=== PATIENT | male | born 1950 | race African-American/Black ===

== ENCOUNTER 2016-12-23 08:49 | Inpatient (IN) | payer MEDICARE, OTHER ==
[2016-12-17 14:22] LABS: EOSINOPHILS % (AUTO) 0.9 % (0.0-3.0); LYMPHOCYTES % (AUTO) 26.1 % (20.0-45.0); MEAN CORPUSCULAR HEMOGLOBIN 29.1 PG (27.0-31.0); MEAN CORPUSCULAR HGB CONC 32.6 G/DL (32.0-36.0); MEAN CORPUSCULAR VOLUME 89 FL (80-99); MEAN PLATELET VOLUME 5.8 FL (6.5-10.1); MONOCYTES % (AUTO) 6.3 % (1.0-10.0); NEUTROPHILS % (AUTO) 65.7 % (45.0-75.0); PLATELET COUNT 212 K/UL (150-450); RED CELL DISTRIBUTION WIDTH 12.3 % (11.6-14.8); WHITE BLOOD COUNT 6.6 K/UL (4.8-10.8)
[2016-12-17 14:38] LABS: PROTHROMBIN TIME 10.5 SEC (9.30-11.50)
[2016-12-17 14:40] LABS: APPEARANCE,URINE CLEAR; KETONES,URINE NEGATIVE (NEGATIVE); LEUKOCYTE ESTERASE ,URINE NEGATIVE (NEGATIVE); NITRITE,URINE NEGATIVE (NEGATIVE); PH,URINE 6 (4.5-8.0); PROTEIN,URINE NEGATIVE (NEGATIVE); UROBILINOGEN,URINE NORMAL MG/DL (0.0-1.0)
[2016-12-17 14:48] LABS: ALANINE AMINOTRANSFERASE 17 U/L (3-41); ALBUMIN/GLOBULIN RATIO 1.7 (1.0-2.7); ANION GAP 12 (5-15); ASPARTATE AMINO TRANSFERASE 19 U/L (5-40); CALCIUM 9.4 mg/dL (8.6-10.2); CARBON DIOXIDE 26 mEQ/L (20-30); CHLORIDE 104 mEQ/L (98-107); GLOMERULAR FILTRATION RATE > 60 mL/min (>60); HEMOLYSIS 5; POTASSIUM 3.7 mEQ/L (3.4-4.9); SODIUM 142 mEQ/L (135-145); TOTAL PROTEIN 7.5 g/dL (6.6-8.7)
[2016-12-17 15:20] LABS: BACTERIA,URINE OCCASIONAL /HPF; RBC,URINE 0-2 /HPF (0 - 0); SQUAMOUS EPITHELIAL CELL,UR OCCASIONAL /LPF (NONE/OCC); WBC,URINE 0-2 /HPF (0 - 0)
--- NOTE | 2016-12-17 15:21 | Diagnostic Imaging Report ---
Indication: COUGH Technique: Two views of the chest Comparison: none Findings: There is atelectasis at the left lung base. Lungs and pleural spaces otherwise clear. The heart size is normal. Aorta is tortuous. Bones are unremarkable Impression: Left basilar atelectasis. No acute process otherwise
[~2016-12-23] VITALS: Ht 170.2 cm; Wt 90.7 kg
[2016-12-23] VITALS (14 sets, daily range): BP systolic 97–152; BP diastolic 52–92
[~2016-12-23 08:49] MED LIST: ceFAZolin 2gm/50ml Premix 50 ML IVPB ONE
[2016-12-23] MEDS ORDERED: Vancomycin 1gm inj IVPB ONE (09:03)
[2016-12-23] MEDS ORDERED: Thrombin 5000 units TOPIC ONE (09:03)
[2016-12-23] MEDS ORDERED: Bacitracin 50000 Units Vial ONE (09:04)
[2016-12-23] MEDS ORDERED: Bupivacaine w/Epi 0.5% 30ml Vial INJ ONE (09:04)
[2016-12-23] MEDS ORDERED: Thrombin 5000 units spray kit TOPIC ONE (09:04)
[2016-12-23] MEDS ORDERED: Gelfoam Absorbable 1gm powder pkt TOPIC ONE (09:04)
[2016-12-23] MEDS ORDERED: TAMSULOSIN HCL0.4 MG ORAL (09:18)
[2016-12-23] MEDS ORDERED: AMLODIPINE BESYL5 MG ORAL (09:19)
[2016-12-23] MEDS ORDERED: PROSCAR5 MG ORAL (09:19)
[2016-12-23] MEDS ORDERED: NORCO 10-325 T1 EACH ORAL (09:20)
[2016-12-23] MEDS ORDERED: TIZANIDINE HCL4 MG ORAL (09:20)
[2016-12-23] MEDS ORDERED: LR 1000ml ONE (10:00)
[2016-12-23] MEDS ORDERED: Zemuron 50mg/5ml Inj IV ONE (10:00)
[2016-12-23] MEDS ORDERED: NS Irrig 1000ml ONE (10:00)
[2016-12-23] MEDS ORDERED: Sterile Water Irrig 1000ml IRRIG ONE (10:00)
[2016-12-23] MEDS ORDERED: Propofol 200mg/20ml IV ONE (10:00)
[2016-12-23] MEDS ORDERED: fentaNYL 100 mcg/2 mL IV ONE (10:00)
[2016-12-23] MEDS ORDERED: Propofol 1,000mg/ 100ml btl IV ONE (10:00)
[2016-12-23] MEDS ORDERED: Midazolam 2mg/2ml Inj ONE (10:00)
[2016-12-23] MEDS ORDERED: ePHEDrine 50mg/ml Inj ONE (10:00)
[2016-12-23] MEDS ORDERED: LR 1000ml 1,000 ML IVLG SCH (11:04)
[2016-12-23] MEDS ORDERED: Hydromorphone 0.5mg/0.5ml inj IVP PRN (11:15)
[2016-12-23] MEDS ORDERED: LORazepam Inj 2mg/ml 1ml IV PRN (11:15)
[2016-12-23] MEDS ORDERED: DiphenhydrAMINE 50mg/ml Inj IVP PRN (11:15)
[2016-12-23] MEDS ORDERED: Meperidine 25mg/0.5ml Inj (FOR RIGORS ONLY) IV PRN (11:15)
--- NOTE | 2016-12-23 11:16 | Anethesia Preoperative Eval ---
Anesthesia Pre-op PMH/ROS General Date of Evaluation: Dec 23, 2016 Time of Evaluation: 09:45 Anesthesiologist: Nikhil ASA Score: ASA 3 Mallampati Score Class I : Soft palate, uvula, fauces, pillars visible Class II: Soft palate, uvula, fauces visible Class III: Soft palate, base of uvula visible Class IV: Only hard plate visible Mallampati Classification: Class II Surgeon: Taylor Diagnosis: Lumbar stenosis Surgical Procedure: Lumbar decompression L4-5, L5-S1 Family History: no anesthesia problems Allergies: Coded Allergies: No Known Allergies (Unverified , 04/17/14) Medications: see eMAR Past Medical History Cardiovascular: Reports: HTN, Denies: CAD, OK, valve dz, arrhythmia, other Pulmonary: Denies: asthma, COPD, HANG, other Gastrointestinal/Genitourinary: Reports: other - Hepatitis C, BPH, Denies: GERD, CRI, ESRD Neurologic/Psychiatric: Denies: dementia, CVA, depression/anxiety, TIA, other Endocrine: Denies: DM, hypothyroidism, steroids, other Hematology/Immune: Denies: anemia, DVT, bleeding disorder, other Musculoskeletal/Integumentary: Reports: RA, Denies: OA, DJD, DDD, edema, other PMH Narrative: HTN, Hep C, BPH PSxH Narrative: Cervical surgery, Umbilical herniorrhaphy Anesthesia Pre-op Phys. Exam Physician Exam Last Vital Signs Date Time Temp Pulse Resp B/P (MAP) Pulse Ox O2 Delivery O2 Flow Rate FiO2 12/23/16 09:32 97.5 68 18 152/91 95 Room Air Constitutional: NAD Neurologic: CN 2-12 intact Cardiovascular: RRR, no M/R/G Respiratory: CTA Gastrointestinal: S/NT/ND Airway Exam Mallampati Score: Class II MO: full ROM: full Teeth: missing Anesthesia Pre-op A/P Labs WNL: Studies Pre-op Studies: EKG - SR, questionable lateral ischemia Risk Assessment & Plan Assessment: ASA class 3 patient for lumbar decompression Plan: GETA, [place] scope, SedLine monitor Status Change Before Surgery: No Pre-Antibiotics Drug: Ancef Given Within 1 Hr of Incision: Yes Time Given: 10:15 YAAKOV LLANES M.D. Dec 23, 2016 11:16
--- NOTE | 2016-12-23 11:17 | Immediate Post-Op Evaluation ---
Immediate Post-Op Evalulation Immediate Post-Op Evalulation Procedure: Lumbar decompression L4-4, L5-S1 Date of Evaluation: Dec 23, 2016 Time of Evaluation: 13:20 IV Fluids: 2000 Estimated Blood Loss: 200 Urinary Output: 100 Blood Pressure Systolic: 118 Blood Pressure Diastolic: 75 Pulse Rate: 99 Respiratory Rate: 20 O2 Sat by Pulse Oximetry: 96 Temperature (Fahrenheit): 97.7 Pain Score (1-10): 0 Nausea: No Vomiting: No Complications No complication Patient Status: reacts, patent, extubated, none Hydration Status: adequate Drug: Ancef Given Within 1 Hr of Incision: Yes Time Given: 10:15 YAAKOV LLANES M.D. Dec 23, 2016 11:17
--- NOTE | 2016-12-23 12:54 | Pre-Procedure Note/Attestation ---
Pre-Procedure Note/Attestation Complete Prior to Procedure Procedure Narrative: [id number] laminoforaminotomy Indications for Procedure Pre-Operative Diagnosis: l4-s1 stenosis with LLE radiculopathy Attestation I attest that I discussed the nature of the procedure; its benefits; risks and complications; and alternatives (and the risks and benefits of such alternatives ), prior to the procedure, with the patient (or the patient's legal business process representative). I attest that, if there was a reasonable possibility of needing a blood transfusion, the patient (or the patient's legal business process representative) was given the [facility] standardized written summary, pursuant to the [place] Blood Safety Act ([place] Health and Safety Code # 1645, as amended). I attest that I re-evaluated the patient just prior to the surgery and that there has been no change in the patient's H&P, except as documented below: ADRIAN MULTANI Dec 23, 2016 12:54
--- NOTE | 2016-12-23 12:56 | Brief Operative Note ---
Immediate Post Operative Note Operative Note Pre-op Diagnosis: l4-s1 stenosis with LLE radiculopathy Procedure: L4, L5, S1 L laminectomy, foraminotomy, lysis of adhesions Post-op Diagnosis: same as pre-op Findings: consistent w/pre-op dx studies Surgeon: teddy Anesthesiologist: sukumar Anesthesia: general Specimen: none Complications: none Condition: stable Fluids: 1900 Estimated Blood Loss: volume - 200 Drains: hemovac Implant(s) used?: No ADRIAN MULTANI Dec 23, 2016 12:56
[2016-12-23] MEDS ORDERED: Metoclopramide 10mg/2ml Inj IVP PRN (13:00)
[2016-12-23] MEDS ORDERED: HYDROmorphone 1mg/ml Carpuject SUBQ PRN (13:00)
[2016-12-23] MEDS ORDERED: Naloxone 0.4mg/ml Inj IVP PRN (13:00)
[2016-12-23] MEDS ORDERED: Milk of Magnesia 30ml Ud ORAL PRN (13:00)
[2016-12-23] MEDS ORDERED: Norco 7.5mg/325mg tab ORAL PRN (13:00)
[2016-12-23] MEDS ORDERED: Norco 5mg/325mg tab ORAL PRN (13:00)
--- NOTE | 2016-12-23 13:32 | Diagnostic Imaging Report ---
Indication: Back pain Comparison: None Findings: Fluoroscopic views of the lumbar spine were obtained. 2 localization imaging obtained intraoperatively. Initial images show needles posterior to L4 and L5. Second image states instrument at the level of L4-5 disc. Impression: Intraoperative imaging
[2016-12-23] MEDS: D5 1/2NS 1,000 ML IV SCH (16:59)
[2016-12-23] MEDS: Pericolace tab ORAL SCH (17:05)
[2016-12-23] MEDS: Norco 7.5mg/325mg tab ORAL PRN ×2 (17:07→22:09)
[2016-12-23] MEDS: ceFAZolin sod 1 GM in D5W 55 ML IV SCH (17:09)
--- NOTE | 2016-12-23 17:48 | History & Physical ---
History and Physical History & Physicial Dictated for Int Med Dr Manzano no. [id number]. MAX GERMAN Dec 23, 2016 17:48
--- NOTE | 2016-12-23 19:16 | Operative Note - Dictated ---
DATE OF OPERATION: 12/23/2016 SURGEON: Ugo Vazquez M.D. MACHINE ENGINEER: None. ANESTHESIA: General endotracheal anesthesia. ANESTHESIOLOGIST: Wilfred Ngo M.D. Preoperative Diagnosis: Spinal stenosis, L4-L5 and L5-S1 with left lower extremity radiculopathy. POSTOPERATIVE DIAGNOSES: 1. Spinal stenosis, L4-L5 and L5-S1 with left lower extremity radiculopathy. 2. Extensive adhesion surrounding the L5 nerve root. PROCEDURE: 1. Hemilaminectomy, left side L4, L5, superior one-half S1. 2. Foraminotomy, left side L4-L5 and L5-S1. 3. Neurolysis L5. 4. Use of operating microscope. 5. Use of fluoroscopy for localization purposes with interpretation. 6. Neurodiagnostic monitoring. ESTIMATED BLOOD LOSS: 200 mL. FLUIDS GIVEN: 1900 mL. CONDITION: Patient's condition is stable. COMPLICATIONS: None. Indications: The patient is a 66-year-old with fairly significant spinal stenosis at L4-L5 and L5-S1 with left lower extremity radiculopathy. He also has mechanical back pain. I did discuss with him the option of decompression fusion versus decompression alone. This was determined that the patient had failed conservative care. The patient elected not to have fusion and desired for decompression along with the risks and benefits of surgery were discussed, included, but not be limited to those of bleeding, infection, damage to nerves, vessels, tendons, anesthetic risk, allergic reaction, aspiration, and possibly . The patient understood and wished to proceed. Possible risk for additional need for surgery and instability and increased mechanical back pain was discussed. The patient understood and wished to proceed. Operative PROCEDURE in detail: The patient was taken to the operative suite. After general endotracheal anesthesia was obtained, the Zuniga catheter was placed. He was turned prone on the radiolucent table. The back was prepped and draped in the usual sterile fashion. A midline skin incision was made after fluoroscopic markings confirmed the appropriate levels. Subperiosteal dissection was carried out from L4 through S1. This was performed on the left side. Self-retaining retractor was put in place. The L4-L5 level was identified and a curved curette was placed at that site and the L4-L5 was properly confirmed. Under microscopic visualization, hemilaminectomy was performed on the inferior portion of L4 and superior portion of L5. Extensive scarring was encountered and thickening and calcification of the ligamentum flavum, which was removed in a piecemeal fashion. Medial facetectomy was performed. The neural foraminotomy was achieved. It was noted that the inferior portion of the nerve sac was quite compressed and it was decided to perform a complete laminectomy on the left side at L5. This was performed by using high-speed drill and thinning up lamina and removing the lamina off of the ligamentum flavum with a Kerrison punch. Extensive scarring was encountered. Marked adhesions of the L5 nerve root was also encountered. Scarring of the ligamentum flavum down to S1 was encountered. Therefore it was decided to perform a laminectomy of the superior half of the S1 lamina, which allowed for removal of the calcified ligamentum flavum. At this point, under microscopic visualization, the L5 nerve root was identified to have extensive scarring due to chronic inflammatory changes. A marker set curette as well as rotund micro instruments were used to meticulously tease the scar tissue off of the dural sac. Once full decompression of the left side of the canal at L4, L5, and S1 was achieved, neural foraminotomies were achieved by performing medial facetectomies. Copious irrigation was performed. Once the area was fully decompressed, decision was made to close. The patient did have a steady oozing throughout the procedure and therefore it was felt that a medium-sized Hemovac drain should be placed, which was placed subfascially. The fascia was repaired using #1 Vicryl. Copious irrigation was performed both deep to the fascia and above the fascia. At this juncture, once copious irrigation was achieved, meticulous hemostasis superficially was achieved, decision was made to close. Skin was repaired using 2-0 subcutaneous. The drain was attached with Steri-Strips. Sterile dressing was applied. The patient at time of this dictation was awaiting extubation. Sponge and needle counts were correct. Neurodiagnostic monitoring remained stable throughout. Ugo Vazquez M.D. DR: Tracie JOB#: [id number] CC:
[2016-12-23] MEDS: Tamsulosin 0.4mg cap ORAL SCH (20:57)
[2016-12-24] VITALS: BP 140/90
--- NOTE | 2016-12-24 00:32 | History and Physical Report ---
DATE OF ADMISSION: 12/23/2016 Chief Complaint: The patient is a 66-year-old male, who presents with a chief complaint of preoperative lumbar surgery. History Of Present Illness: The patient has a history of lumbar stenosis at L4-L5 and L5-S1. The patient is scheduled for laminoforaminotomy today, 12/23/[address] Vazquez. The patient presents today for surgery. PAST MEDICAL HISTORY: Significant for: 1. Hypertension. 2. Benign prostatic hypertrophy. 3. Lumbar stenosis as above. PAST SURGICAL HISTORY: The patient denies. CURRENT MEDICATIONS: 1. Norvasc 5 mg 1 tablet p.o. daily. 2. Finasteride 5 mg 1 tablet p.o. daily. 3. [place] 10/325 mg 1 tablet p.o. q.4 h. p.r.n. 4. Flomax 0.4 mg 1 tablet p.o. at bedtime. 5. Zanaflex 4 mg 1 tablet p.o. twice daily. ALLERGIES: No known drug allergies. Social History: The patient is single and is retired. The patient admits to tobacco use of one-half pack per day. The patient admits to occasional alcohol use. The patient denies drugs abuse. Review Of Systems: Constitutional: The patient denies weight loss or weight gain. The patient denies fevers or chills. HEENT: The patient denies ear or throat pain. The patient denies headache. Cardiovascular: The patient denies palpitations or chest pain. Chest: The patient denies wheeze or shortness of breath. Abdomen: The patient denies nausea, vomiting, diarrhea, or constipation. Genitourinary: The patient denies dysuria or increased frequency of urination. Neuromuscular: The patient has chronic low back pain. The patient denies seizures or generalized weakness. PHYSICAL EXAMINATION: Vital Signs: Temperature 97.4 degrees, respirations 16, pulse 81, and blood pressure 102/64. General: The patient is a well-developed, well-nourished, male, in no apparent distress. HEENT: Eyes, pupils equal and responsive to light and accommodation. Extraocular movements are intact. NECK: Supple without lymphadenopathy. Chest: Lungs are clear to auscultation bilaterally without wheezes or rales. Cardiovascular: Regular rhythm and rate. S1 and S2 are normal without murmurs, rubs, or gallops. Abdomen: Soft, nontender, and nondistended. Positive bowel sounds. No evidence of hepatosplenomegaly. Currently, no rebound or guarding noted. EXTREMITIES: Negative for clubbing, cyanosis, or edema. RECTAL/GENITAL: Refused. Neurologic: Cranial nerves II through XII are grossly intact without focal deficits. Laboratory Studies: WBC 6.6, hemoglobin 14.8, hematocrit 45.4, and platelets 212,000. Sodium 142, potassium 3.7, chloride 104, CO2 26, BUN 8, creatinine 1.0, and glucose 111. Protime 10.5, INR 1.0, PTT 28. Urinalysis was within normal limits. ASSESSMENT: This is a 66-year-old, male. 1. Lumbar stenosis. 2. Preoperative history and physical. 3. Hypertension. 4. Benign prostatic hypertrophy. TREATMENT: 1. Lumbar stenosis. The patient is scheduled for L4-L5 and L5-S1 laminoforaminotomy by Dr. Vazquez today, 12/23/2016. 2. Hypertension. Continue Norvasc as above. 3. Benign prostatic hypertrophy. Continue finasteride as above. Korey Thompson M.D. DR: MAXIM JOB#: [id number] CC:
[2016-12-24] MEDS: D5 1/2NS 1,000 ML IV SCH ×2 (00:40→10:04)
[2016-12-24] MEDS: ceFAZolin sod 1 GM in D5W 55 ML IV SCH ×2 (01:16→09:01)
[2016-12-24 04:00] VITALS: BP 134/79
[2016-12-24] MEDS: Norco 7.5mg/325mg tab ORAL PRN ×3 (04:32→15:13)
[2016-12-24 06:26] LABS: BASOPHILS % (AUTO) 1.3 % (0.0-2.0); EOSINOPHILS % (AUTO) 0.7 % (0.0-3.0); LYMPHOCYTES % (AUTO) 15.6 % (20.0-45.0); MEAN CORPUSCULAR HEMOGLOBIN 29.9 PG (27.0-31.0); MEAN CORPUSCULAR HGB CONC 33.1 G/DL (32.0-36.0); MEAN CORPUSCULAR VOLUME 90 FL (80-99); MEAN PLATELET VOLUME 5.7 FL (6.5-10.1); MONOCYTES % (AUTO) 10.1 % (1.0-10.0); NEUTROPHILS % (AUTO) 72.4 % (45.0-75.0); PLATELET COUNT 186 K/UL (150-450); RED BLOOD COUNT 4.39 M/UL (4.70-6.10); RED CELL DISTRIBUTION WIDTH 12.7 % (11.6-14.8); WHITE BLOOD COUNT 8.3 K/UL (4.8-10.8)
[2016-12-24 07:10] LABS: ANION GAP 11 (5-15); CALCIUM 8.3 mg/dL (8.6-10.2); CARBON DIOXIDE 28 mEQ/L (20-30); CHLORIDE 102 mEQ/L (98-107); CREATININE 1.2 mg/dL (0.7-1.2); GLOMERULAR FILTRATION RATE > 60 mL/min (>60); HEMOLYSIS 7; POTASSIUM 3.8 mEQ/L (3.4-4.9); SODIUM 141 mEQ/L (135-145)
[2016-12-24 07:56] VITALS: BP 130/79
[2016-12-24] MEDS: Pericolace tab ORAL SCH ×2 (08:02→17:13)
--- NOTE | 2016-12-24 08:29 | Orthopedic Spine Progress Note ---
Ortho Spine - Progress Note Subjective Symptoms: c/o post-op back pain, improved - as compared to pre-op Objective Vital Signs: Last 24 Hour Vital Signs Date Time Temp Pulse Resp B/P (MAP) Pulse Ox O2 Delivery O2 Flow Rate FiO2 12/24/16 08:02 90 130/79 12/24/16 07:56 98.6 90 19 130/79 95 Room Air 12/24/16 04:00 98.2 83 18 134/79 93 Room Air 12/24/16 00:00 98.1 79 18 140/90 95 Room Air 12/23/16 20:00 97.4 66 16 140/92 99 Nasal Cannula 2.0 12/23/16 16:50 98.7 82 20 130/82 99 Nasal Cannula 2.0 12/23/16 16:09 98.3 71 20 127/74 96 Nasal Cannula 2.0 12/23/16 14:25 97.4 81 16 102/64 96 Nasal Cannula 3.0 12/23/16 14:10 84 17 97/64 96 Nasal Cannula 3.0 12/23/16 14:00 87 21 106/70 96 Nasal Cannula 3.0 12/23/16 13:59 98.7 12/23/16 13:59 98.7 12/23/16 13:50 86 18 99/67 96 Nasal Cannula 3.0 12/23/16 13:40 87 19 110/72 98 Nasal Cannula 3.0 12/23/16 13:30 89 22 106/69 98 Nasal Cannula 3.0 12/23/16 13:25 97 26 114/52 97 Nasal Cannula 3.0 12/23/16 13:20 99 22 124/81 98 Simple Mask 6.0 12/23/16 13:15 101 16 118/75 99 Simple Mask 6.0 12/23/16 13:14 99 20 96 12/23/16 13:10 98.7 98 14 130/78 97 Simple Mask 6.0 12/23/16 09:32 97.5 68 18 152/91 95 Room Air Wound: clean, intact Drains: hemovac Neuro Status: unchanged from pre-op Assessment Procedure Performed: L4, L5, S1 L laminectomy, foraminotomy, lysis of adhesions Plan Plan: PT, pain management, continue drain, discharge plan Additional Comments: [facility]os [facility] Dec 24, 2016 08:29
--- NOTE | 2016-12-24 09:15 | 48 Hour Post Anesthesia Eval ---
Post Anesthesia Evaluation Procedure: Lumbar decompression L4-4, L5-S1 Date of Evaluation: Dec 24, 2016 Time of Evaluation: 08:46 Blood Pressure Systolic: 130 0: 79 Pulse Rate: 90 Respiratory Rate: 19 Temperature (Fahrenheit): 98.6 O2 Sat by Pulse Oximetry: 95 Airway: patent Nausea: No Vomiting: No Pain Intensity: 2 Hydration Status: adequate Cardiopulmonary Status: Stable Mental Status/LOC: patient returned to baseline Follow-up Care/Observations: 0 Post-Anesthesia Complications: 0 Follow-up care needed: N/A Nitin Madrid MD Dec 24, 2016 09:15
[2016-12-24 12:00] VITALS: BP 125/73
[2016-12-24 16:00] VITALS: BP 139/95
[2016-12-24] MEDS: Norco 10mg/325mg tab ORAL PRN ×2 (18:15→22:52)
[2016-12-24] MEDS ORDERED: HYDROmorphone 1mg/ml Carpuject SUBQ PRN (18:30)
--- NOTE | 2016-12-24 18:49 | Internal Med Progress Note ---
Subjective Date of Service: Dec 24, 2016 Physician Name German,Max Attending Physician Ugo Vazquez Current Medications Medications (Trade) Dose Ordered Sig/Ruben Route PRN Reason Start Time Stop Time Status Last Admin Dose Admin Acetaminophen/ Hydrocodone Bitart (Leslie 10/325) 2 ea Q4H PRN ORAL Mild Pain (Pain Scale 1-3) 12/24/16 15:45 12/31/16 15:44 12/24/16 18:15 Al Hydroxide/Mg Hydroxide (Mylanta) 30 ml Q6H PRN ORAL gerd 12/24/16 18:30 01/23/17 18:29 Amlodipine Besylate (Norvasc) 5 mg DAILY ORAL 12/24/16 09:00 01/23/17 08:59 12/24/16 08:02 Clonidine HCl (Catapres) 0.1 mg Q8H PRN ORAL SBP > 160 12/24/16 18:30 01/23/17 18:29 Finasteride (Proscar) 5 mg DAILY ORAL 12/24/16 09:00 01/23/17 08:59 12/24/16 08:01 Hydromorphone HCl (Dilaudid) 1 mg Q4H PRN SUBQ Severe Pain (Pain Scale 7-10) 12/24/16 18:30 12/31/16 18:29 Magnesium Hydroxide (Mom) 30 ml QIDPRN PRN ORAL Constipation 12/23/16 13:00 01/22/17 12:59 Naloxone HCl (Narcan) 0.1 mg PRN PRN IVP RR<12/min, pt unarousable 12/23/16 13:00 01/22/17 12:59 Nicotine (Nicoderm) 1 patch Q24H TDERMAL 12/24/16 13:00 01/23/17 12:59 12/24/16 13:00 Ondansetron HCl (Zofran) 4 mg Q6H PRN IVP Nausea & Vomiting 12/23/16 13:00 01/22/17 12:59 Pantoprazole (Protonix) 40 mg BEDTIME ORAL 12/24/16 21:00 01/23/17 20:59 Senna/Docusate Sodium (Carolyn-Colace) 1 ea TWICE A DAY ORAL 12/23/16 18:00 01/22/17 17:59 12/24/16 17:13 Tamsulosin HCl (Flomax) 0.8 mg BEDTIME ORAL 12/23/16 21:00 01/22/17 20:59 12/23/16 20:57 Temazepam (Restoril) 15 mg HSPRN PRN ORAL Insomnia 12/23/16 13:00 12/30/16 12:59 Allergies: Coded Allergies: No Known Allergies (Unverified , 04/17/14) ROS Limited/Unobtainable: No Constitutional: Reports: no symptoms HEENT: Reports: no symptoms Cardiovascular: Reports: no symptoms Respiratory: Reports: no symptoms Gastrointestinal/Abdominal: Reports: no symptoms Genitourinary: Reports: no symptoms Neurologic/Psychiatric: Reports: no symptoms Subjective 66 YO M admitted with lumbar stenosis, S/P laminoforaminotomy 12/23/16. Cover for Int Med-Dr Manzano. [facility] Objective Last Vital Signs Date Time Temp Pulse Resp B/P (MAP) Pulse Ox O2 Delivery O2 Flow Rate FiO2 12/24/16 16:00 98.9 84 19 139/95 96 Room Air 12/23/16 20:00 2.0 General Appearance: WD/WN, no apparent distress, alert EENT: PERRL/EOMI, normal ENT inspection Neck: non-tender, normal alignment, supple, normal inspection Cardiovascular: normal peripheral pulses, normal rate, regular rhythm, no gallop/murmur, no JVD Respiratory/Chest: chest wall non-tender, lungs clear, normal breath sounds, no respiratory distress, no accessory muscle use Abdomen: normal bowel sounds, non tender, soft, no organomegaly, no mass Extremities: normal range of motion Neurologic: quality assurance supervisor chassis II-XII grossly normal, no motor/sensory deficits Skin: normal pigmentation, warm/dry, other - post op wound clean and dry; no erythema Laboratory Tests Test 12/24/16 05:30 White Blood Count 8.3 K/UL (4.8-10.8) Red Blood Count 4.39 M/UL (4.70-6.10) L Hemoglobin 13.1 G/DL (14.2-18.0) L Hematocrit 39.7 % (42.0-52.0) L Mean Corpuscular Volume 90 FL (80-99) Mean Corpuscular Hemoglobin 29.9 PG (27.0-31.0) Mean Corpuscular Hemoglobin Concent 33.1 G/DL (32.0-36.0) Red Cell Distribution Width 12.7 % (11.6-14.8) Platelet Count 186 K/UL (150-450) Mean Platelet Volume 5.7 FL (6.5-10.1) L Neutrophils (%) (Auto) 72.4 % (45.0-75.0) Lymphocytes (%) (Auto) 15.6 % (20.0-45.0) L Monocytes (%) (Auto) 10.1 % (1.0-10.0) H Eosinophils (%) (Auto) 0.7 % (0.0-3.0) Basophils (%) (Auto) 1.3 % (0.0-2.0) Sodium Level 141 mEQ/L (135-145) Potassium Level 3.8 mEQ/L (3.4-4.9) Chloride Level 102 mEQ/L (98-107) Carbon Dioxide Level 28 mEQ/L (20-30) Anion Gap 11 (5-15) Blood Urea Nitrogen 9 mg/dL (7-23) Creatinine 1.2 mg/dL (0.7-1.2) Estimat Glomerular Filtration Rate > 60 mL/min (>60) Glucose Level 127 mg/dL (74-106) H Calcium Level 8.3 mg/dL (8.6-10.2) L Intake and Output 17 9 19:00 07:00 Intake Total 1145 ml Output Total 1220 ml Balance -75 ml Intake Oral 890 ml IV Total 255 ml Output Urine Total 1150 ml Drainage Total 70 ml Assessment/Plan Problem List: (1) Lumbar stenosis Assessment & Plan: POD #1 laminoforaminotomy L4-5 and L5-S1 (2) Post-operative state (3) HTN (hypertension) Assessment & Plan: Continue norvasc and clonidine (prn) (4) BPH (benign prostatic hyperplasia) Assessment & Plan: Cont flomax and proscar Status: progressing Assessment/Plan Discharge to [facility] when bed available. MAX GERMAN Dec 24, 2016 18:49
[2016-12-24 20:00] VITALS: BP 136/81
[2016-12-24] MEDS: Tamsulosin 0.4mg cap ORAL SCH (20:40)
[2016-12-25] VITALS: BP 135/85
--- NOTE | 2016-12-25 00:30 | Consultation ---
DATE OF CONSULTATION: 12/24/2016 CONSULTING PHYSICIAN: Germán Wren M.D. REFERRING PHYSICIAN: Ugo Vazquez M.D. REASON FOR CONSULTATION: Acute pain consult. HISTORY OF PRESENT ILLNESS: Dear Dr. Ugo Vazquez, Thank you kindly for consulting me to evaluate and render an opinion as to how to proceed in the management of acute postoperative lumbar spine pain after lumbar spine surgery. The patient is a 66-year-old, gentleman, who complained of pain postoperatively. He consulted me for acute pain consultation. I saw the patient at bedside. I performed a detailed History and physical examination and discussed the case with nurse RN, Sierra; yourself, Dr. Vazquez; and reviewed the medical record in detail including advance directives. PAST MEDICAL HISTORY: 1. Acute postoperative lumbar spine pain status post lumbar spine surgery by Dr. Ugo Vazquez in December 2016. 2. Hypertension. 3. BPH. 4. Active tobacco usage. 5. Mild obesity. 6. Hepatitis C. 7. Rheumatoid arthritis. PAST SURGICAL HISTORY: Cervical spine surgery. MEDICATIONS AT HOME: Calvin, Zanaflex, Flomax, Proscar, and Norvasc. ALLERGIES: No known drug allergies. Social History: The patient lives alone. He is in close contact with his , who lives separately and extended family including grandchildren. The patient admits to smoking tobacco and is currently wearing a nicotine patch. Medical marijuana. PHYSICAL EXAMINATION: Vital Signs: Age 66. Height 170 cm. Weight 91 kilograms. Body mass index 31. Afebrile, pulse 84, respirations 19, blood pressure 139/95, and oxygen saturation 96% on room air. HEENT: Normocephalic and atraumatic. CHEST: Clear to auscultation. HEART: Regular rate and rhythm. Positive S4. Normal S1 and S2. ABDOMEN: Soft. Positive bowel sounds. BACK: Lumbar spine with Hemovac drain holding suction. Neurological: A detailed neurologic exam deferred to Dr. Vazquez. Grossly motor strength appears 5/5. Laboratory and Diagnostic data: Diagnostic testing from 12/17/2016 showed sodium 142, potassium 3.7, chloride 104, bicarbonate 26, BUN 8, creatinine 1.0, glucose 111, calcium 9.4, total bilirubin is 0.8, AST is 19, ALT 17, total protein is 7.5, albumin 4.8, alkaline phosphatase is 98. White count is 7, hematocrit 45, and platelets 212,000. INR 1.0. Urinalysis is negative. A 12-lead EKG is illegible. Preoperative chest x-ray shows left basilar atelectasis. No acute cardiopulmonary process, dated 12/17/2016. IMPRESSION: 1. Acute postoperative lumbar spine pain status post lumbar spine surgery by Dr. Ugo Vazquez in December 2016. 2. Hypertension. 3. Benign prostatic hyperplasia. 4. Active tobacco usage. 5. Mild obesity. 6. Hepatitis C. 7. Rheumatoid arthritis. Recommendations: The patient was trialed on multiple doses of hydrocodone, but stated that the dose was inadequate. I spoke with the pharmacist, Samanta, and ordered Calvin 10/325 mg tablets orally every 4 hours p.r.n. for mild pain. I agree with a nicotine patch for nicotine withdrawal and agitation, which may exacerbate his pain complaints. I will make available a rescue dose of Dilaudid 1 mg subcutaneously every 4 hours p.r.n. I have ordered a dose of Dilaudid 1 mg subcutaneously every 4 hours p.r.n. for severe pain. I have ordered Zofran as a rescue antiemetic. I have ordered Benadryl 20 mg q.6 h. p.r.n. for any itching symptoms. I will empirically place the patient on Protonix for GI ulcer prophylaxis. I did demonstrate proper use of incentive spirometer and encouraged good pulmonary toilet in an active tobacco user. The patient does use medical marijuana. At this time, we will try to hold off on using Marinol. However, the pain complaints continue to exacerbate with his increased ambulation, usage of Marinol 2.5 mg may be beneficial here in the hospital. I will empirically place the patient on Protonix 40 mg nightly for GI ulcer prophylaxis. I have also added a dose of clonidine 0.1 mg in case of any hypertensive issues. Dr. Manzano is following on the patient's medical issues. Dr. Vazquez evaluated the patient earlier this morning and decided to maintain the indwelling lumbar spine drain catheter in place at this time. We will see how the drainage decrease within the next 12 hours. The patient is discussing discharge options with the rn field case manager. He does live alone. The patient does seem rather motivated, and the patient does hope that he is able to perhaps discharge home with home health rather than need to transfer to a custodial facility. I did leave a prescription for 75 tablets of Calvin for outpatient usage. This medication will be reviewed and refilled as necessary by his outpatient, Dr. Manzano. Germán Wren M.D. DR: Nas JOB#: [id number] CC:
[2016-12-25 04:00] VITALS: BP 114/73
[2016-12-25 07:14] LABS: BASOPHILS % (AUTO) 1.3 % (0.0-2.0); EOSINOPHILS % (AUTO) 1.2 % (0.0-3.0); LYMPHOCYTES % (AUTO) 20.8 % (20.0-45.0); MEAN CORPUSCULAR HEMOGLOBIN 30.2 PG (27.0-31.0); MEAN CORPUSCULAR HGB CONC 33.2 G/DL (32.0-36.0); MEAN CORPUSCULAR VOLUME 91 FL (80-99); MEAN PLATELET VOLUME 6.1 FL (6.5-10.1); NEUTROPHILS % (AUTO) 64.7 % (45.0-75.0); PLATELET COUNT 182 K/UL (150-450); RED BLOOD COUNT 4.34 M/UL (4.70-6.10); RED CELL DISTRIBUTION WIDTH 12.3 % (11.6-14.8); WHITE BLOOD COUNT 8.7 K/UL (4.8-10.8)
[2016-12-25 07:21] LABS: ANION GAP 10 (5-15); CARBON DIOXIDE 29 mEQ/L (20-30); CHLORIDE 101 mEQ/L (98-107); CREATININE 1.2 mg/dL (0.7-1.2); GLOMERULAR FILTRATION RATE > 60 mL/min (>60); HEMOLYSIS 2; POTASSIUM 3.7 mEQ/L (3.4-4.9); SODIUM 140 mEQ/L (135-145)
[2016-12-25] MEDS: Norco 10mg/325mg tab ORAL PRN (08:22)
[2016-12-25] MEDS: Pericolace tab ORAL SCH (08:22)
--- NOTE | 2016-12-25 08:34 | Orthopedic Spine Progress Note ---
Ortho Spine - Progress Note Subjective Symptoms: c/o post-op back pain, improved Objective Vital Signs: Last 24 Hour Vital Signs Date Time Temp Pulse Resp B/P (MAP) Pulse Ox O2 Delivery O2 Flow Rate FiO2 12/25/16 08:23 90 114/73 12/25/16 04:00 97.3 90 18 114/73 95 Room Air 12/25/16 00:00 98.0 90 18 135/85 98 Room Air 12/24/16 23:51 98.0 12/24/16 20:00 98.5 90 18 136/81 95 Room Air 12/24/16 16:00 98.9 84 19 139/95 96 Room Air 12/24/16 12:00 98.1 80 19 125/73 95 Room Air 12/24/16 09:15 90 19 95 Wound: clean, intact Drains: hemovac Neuro Status: unchanged from pre-op Assessment Procedure Performed: L4, L5, S1 L laminectomy, foraminotomy, lysis of adhesions Plan Plan: PT, pain management, d/c drain, discharge plan ADRIAN MULTANI Dec 25, 2016 08:34
[2016-12-25 08:38] VITALS: BP 113/71
[2016-12-25 11:49] VITALS: BP 120/74
[2016-12-25] MEDS ORDERED: D5 1/2NS 1000ml IV ONE (14:59)
--- NOTE | 2016-12-25 21:46 | Progress Note ---
DATE: 12/25/2016 ACUTE PAIN MANAGEMENT PHYSICIAN PROGRESS NOTE Medications: Medication administration record reviewed. Medications Include Restoril, Flomax, Carolyn-Colace, Protonix, Zofran, NicoDerm patch, Narcan, milk of magnesia, Dilaudid, Aurora, Proscar, Catapres, Norvasc, and Mylanta. Laboratory Studies: This morning 12/25/2016 shows normal white count 9, hematocrit 39, and platelets 182,000. Sodium 140, potassium 3.7, chloride 101, bicarbonate 29, BUN 9, creatinine 1.2, and glucose 111. Calcium is 9.0. PHYSICAL EXAMINATION: Vital Signs: Within normal limits. Afebrile. Pulse 81, respirations 20, blood pressure 120/74, and oxygen saturation 93% on room air. The patient has been doing quite well over the past 24 hours. I discussed the case with the surgeon, Dr. Vazquez along with the charge nurse RN, Bernadette. The surgeon Dr. Vazquez visited the patient earlier this morning and removed the indwelling lumbar spine drain catheter. The patient decided that he would prefer not to go to a shelter facility, but instead of returning to home with home health. factory manager is arranging the services to escalate the patient's possible discharge home. NicoDerm patch remained place for NicoDerm withdrawal agitation. The patient has been tolerating Aurora 10/325 mg tablets every four hours for breakthrough pain. I did leave a prescription for outpatient usage. I agree with the surgeon for discharge to home today. Germán Wren M.D. DR: MARGARITO JOB#: [id number] CC:
--- NOTE | 2016-12-26 07:37 | Discharge Summary ---
Discharge Summary Hospital Course Date of Admission Dec 23, 2016 at 08:49 Date of Discharge Dec 25, 2016 at 15:00 Admitting Diagnosis HPI Robbie Licona is a 66 year old male who was admitted on Dec 23, 2016 at 08: 49 for Lumbar Stenosis L4-5,L5-S1 Hospital Course [id number] Discharge Discharge Disposition Patient was discharged to Home (01) Discharge Diagnoses: Mendy Stern NP Dec 26, 2016 07:37
--- NOTE | 2016-12-26 16:01 | Discharge Summary 2 SIG ---
DATE OF ADMISSION: 12/23/2016 DATE OF DISCHARGE: 12/25/2016 SURGEON: Ugo Vazquez M.D. CONSULTANTS: 1. Korey Thompson M.D. 2. Germán Wren M.D. BRIEF HOSPITAL COURSE: The patient is a 66-year-old male, who has history of lumbar stenosis at L4-L5 and L5-S1 who had fairly significant spinal stenosis with left lower extremity radiculopathy and mechanical back pain. He underwent conservative care; however, symptoms continued. Decision for surgery was made and on 12/23/16, he underwent hemilaminectomy on L4, L5, and S1. Postoperatively, he was given pain management and was seen by Dr. Wren. He was given Protonix and nicotine patch. He had an indwelling lumbar spine drain catheter. He underwent physical therapy. Symptoms improved. His vitals had been stable. Indwelling lumbar spine catheter was eventually removed. He had good pain control and has been tolerating [place]. He was discharged home. FINAL DIAGNOSES: 1. Lumbar stenosis with left lower extremity radiculopathy, status post hemilaminectomy and foraminotomy on L4-L5 and L5-S1. 2. Hypertension. 3. Benign prostatic hypertrophy. DISPOSITION: The patient was discharged home with home health. DISCHARGE MEDICATION: Refer to medication list. ACTIVITY: Ambulate with front wheel walker with full weightbearing status. Korey Thompson M.D. I have been assigned to dictate discharge summary on this account and I was not involved in the patient's management. Mendy Stern N.P. DR: DEREK JOB#: [id number] CC: DEON
== END 2016-12-25 15:00 | disposition home health service (06) | DRG 517 ==
LOC: SDSOVERFLO 08:49 → 3E 14:11
DX: M51.16 Intervertebral disc disorders with radiculopathy, lumbar region (principal); M48.06 Spinal stenosis, lumbar region; M48.07 Spinal stenosis, lumbosacral region; I10 Essential (primary) hypertension; N40.0 Benign prostatic hyperplasia without lower urinary tract symptoms; Z86.19 Personal history of other infectious and parasitic diseases; M06.9 Rheumatoid arthritis, unspecified
CPT/HCPCS: 36415; 71020; 72020; 76001; 80048; 80053; 81001; 85025; 85610; 85730; 86850; 86900; 86901; 87081; 94003; 94150; C9399; J2180; J2250; J2405